=== PATIENT | female | born 1985 | race Hispanic/Latino ===

== ENCOUNTER 2025-08-08 12:14 | Inpatient (IN) | payer SELFPAY ==
[2025-08-08 13:25] LABS: #Basophils Less than 0.03 10x3/uL (0.0-0.2); #Eosinophils 0.04 10x3/uL (0.0-0.7); #Monocytes 0.23 10x3/uL (0.11-0.59); #Neutrophils 2.38 10x3/uL (1.40-6.50); %Basophils 0.3 % (0.0-1.0); %Eosinophils 1.1 % (0.0-10.0); %Lymphocytes 23.9 % (21.0-51.0); %Monocytes 6.6 % (0.0-10.0); %Neutrophils 67.8 % (42.0-75.0); Hematocrit 18.4 % (36.0-47.0); Hemoglobin 4.5 g/dL (12.0-16.0); Mean Corpuscular Hemoglobin 14.6 pg (27.0-31.0); Mean Corpuscular Volume 59.5 fL (78.0-98.0); Platelet Count 193 10x3/uL (130-400); Red Blood Cell (RBC) Count 3.09 mill/uL (4.20-5.40); White Blood Cell (WBC) Count 3.51 10x3/uL (4.8-10.8)
[2025-08-08 13:47] LABS: ALT (SGPT) 11 U/L (Less than 34); AST (SGOT) 16 U/L (11-34); Albumin 3.8 g/dL (3.1-4.5); Alkaline Phosphatase 58 U/L (40-110); Anion Gap 13 mmol/L (10-20); BUN (Urea Nitrogen) 10 mg/dL (7.0-18.7); Bilirubin, Total 0.2 mg/dL (0.3-1.2); Calc. Creatinine Clearance 0 mL/min (70-130); Calcium 8.5 mg/dL (7.8-10.44); Carbon Dioxide 22 mmol/L (22-29); Chloride 102 mmol/L (98-107); Globulin 2.8 g/dL (2.4-3.5); Glucose 318 mg/dL (70-105); Potassium 3.9 mmol/L (3.5-5.1); Sodium 133 mmol/L (136-145)
[2025-08-08 14:10] LABS: Iron 10 ug/dL (50-170); Iron Binding Capacity, Total 414 mcg/dL (265-497)
[2025-08-08] MEDS ORDERED: Glucagon 1 MG/ML KIT IM PRN (14:28)
[2025-08-08] MEDS ORDERED: Dextrose 50% Abboject 50 ML SYRINGE SLOW IVP PRN (14:28)
[2025-08-08 14:29] LABS: Microcytosis SLIGHT = 6-15 cells HPF (0-5); Platelet Adequacy Comment Platelets Normal; Polychromasia SLIGHT = 2-3 cells HPF (0-2); Reflex for Review?? YES; Schistocytes SLIGHT = 2-5 cells HPF (0-1)
[2025-08-08 14:38] LABS: Ferritin 2.91 ng/mL (10-291); Thyroid Stimulating Hormone 3.6153 uIU/mL (0.35-4.94); Vitamin B12 302.0 pg/mL (211-911)
[2025-08-08 16:35] VITALS: BMI 19.1
[2025-08-08] MEDS: metFORMIN 500 MG TAB PO SCH (21:30)
[2025-08-08] MEDS: Famotidine 20 MG TAB PO SCH (21:30)
[2025-08-08] MEDS: Sodium Ferric Gluconate 250 MG in Sodium Chloride 0.9% 250 ML 250 ML IVPB SCH ×2 (22:57→23:52)
[2025-08-08 23:11] LABS: CAUTI Indications for Culture Pelvic or flank pain; Glucose, Urine (Dipstick) Greater than 1000 mg/dL (Negative); Leukocyte Negative Leu/uL (Negative); Protein, Urine (Dipstick) Negative (Neg-Trace); RBC/HPF 0-3 HPF (0-3); Specific Gravity, Urine 1.031 (1.002-1.036)
[2025-08-08 23:12] LABS: Bacteria/HPF 1+ HPF (None Seen)
[2025-08-08 23:13] LABS: Urine Culture Reflex No No
[2025-08-09 01:53] LABS: Hematocrit 23.8 % (36.0-47.0); Hemoglobin 6.5 g/dL (12.0-16.0); Platelet Count 192 10x3/uL (130-400)
[2025-08-09 08:59] LABS: Hematocrit 27.9 % (36.0-47.0); Hemoglobin 8.1 g/dL (12.0-16.0)
[2025-08-09] MEDS: Ferrous Sulfate 325 MG TAB PO SCH (09:17)
[2025-08-09] MEDS: Insulin Glargine 30 UNITS/0.3 ML VIAL SC SCH (11:39)
[2025-08-09 12:15] VITALS: BP 110/72; TEMP 98
[2025-08-10] MEDS ORDERED: Insulin Glargine 30 UNITS/0.3 ML VIAL SC SCH (09:00)
== END 2025-08-09 18:37 | disposition home or self-care (01) | DRG 812 ==
LOC: ERS 12:14 → ERHOLD 14:10 → 2NO 16:17 → OBSVTOIN 08-09 09:44
PROVIDERS: ADMIT Internal Medicine; ATTEND Internal Medicine
PROC: 30233N1 Transfusion of Nonautologous Red Blood Cells into Peripheral Vein, Percutaneous Approach (ICD-10-PCS; principal; 2025-08-08)
DX: D50.9 Iron deficiency anemia, unspecified (principal); E11.9 Type 2 diabetes mellitus without complications; Z79.84 Long term (current) use of oral hypoglycemic drugs
CPT/HCPCS: 36415; 36416; 36430; 71045; 76856; 80053; 81001; 82274; 82607; 82728; 83036; 83540; 83550; 84443; 85014; 85018; 85025; 85049; 85060; 86850; 86900; 86901; 93005; 93976; 96365; 96366; G0378; J1815; J2916; J7050; P9016